=== PATIENT | female | born 1975 | race Caucasian/White ===

== ENCOUNTER 2017-01-28 16:04 | Emergency (ER) | payer BC ==
[~2017-01-28] VITALS: Ht 167.6 cm; Wt 54.4 kg
[~2017-01-28 16:04] MED LIST: IBUP-1481 PO
--- NOTE | 2017-01-28 16:29 | NUR ---
Patient discharged to home in stable conditon. Written and verbal after care instructions given to patient. Patient verbalizes understanding of instructions.
== END 2017-01-28 16:30 | disposition home or self-care (01) ==
LOC: ER 16:04
DX: R07.0 Pain in throat (principal); F41.9 Anxiety disorder, unspecified
CPT/HCPCS: A4663